=== PATIENT | female | born 1990 | race African-American/Black ===

== ENCOUNTER 2020-05-25 12:17 | Emergency (ER) | payer MEDICAID, OTHER ==
[~2020-05-25] VITALS: Ht 162.6 cm; Wt 95.3 kg
[2020-05-25] MEDS ORDERED: ONDANSETRON HCL/PF 4 MG/2 ML VIAL ONE (12:57)
[2020-05-25 13:07] LABS: BASOPHILS # (AUTO) 0.1 /CMM (0.0-0.2); BASOPHILS % (AUTO) 0.9 % (0.0-2.0); EOSINOPHILS % (AUTO) 0.6 % (0.0-6.0); HEMATOCRIT 33 % (33-45); HEMOGLOBIN 11.4 g/dL (11.5-14.8); LYMPHOCYTES # (AUTO) 1.6 /CMM (0.8-4.8); LYMPHOCYTES % (AUTO) 22.4 % (20.0-44.0); MEAN CORPUSCULAR HGB CONC 34 g/dl (31.0-36.0); MEAN CORPUSCULAR VOLUME 82 fL (82-100); MONOCYTES # (AUTO) 0.6 /CMM (0.1-1.30); MONOCYTES % (AUTO) 7.9 % (2.0-12.0); NEUTROPHILS # (AUTO) 4.9 /CMM (1.8-8.9); NEUTROPHILS % (AUTO) 68.2 % (43.0-81.0); PLATELET COUNT (AUTO) 358 /CMM (150-450); RED BLOOD CELL COUNT(AUTO) 4.09 MIL/uL (4.0-5.2); WHITE BLOOD COUNT (AUTO) 7.1 K/uL (4.3-11.0)
[2020-05-25] MEDS: IV NS 0.9% 1,000 ML BAG IV ONE (13:07)
[2020-05-25] MEDS: ONDANSETRON HCL/PF 4 MG/2 ML VIAL IVP ONE (13:08)
[2020-05-25 13:19] LABS: ALBUMIN 3.5 g/dL (3.4-5.0); BILIRUBIN,DIRECT 0.2 mg/dL (0.0-0.2); BILIRUBIN,TOTAL 0.6 mg/dL (0.2-1.0); CALCIUM, SERUM 9.4 mg/dL (8.5-10.1); CREATININE 0.7 mg/dL (0.6-1.3); TOTAL PROTEIN, SERUM 7.4 g/dL (6.4-8.2)
[2020-05-25 13:20] LABS: POTASSIUM 2.8 mmol/L (3.5-5.1)
[2020-05-25] MEDS ORDERED: LORAZEPAM INJ 2 MG/ML VIAL ONE (13:34)
[2020-05-25] MEDS: LORAZEPAM INJ 2 MG/ML VIAL IV ONE (13:43)
[2020-05-25] MEDS ORDERED: POTASSIUM CL. PREMIX PERIPHER. 50 ML ONE (13:44)
[2020-05-25] MEDS: POTASSIUM CL. PREMIX PERIPHER. 50 ML IV SCH (13:47)
--- NOTE | 2020-05-25 14:41 | NUR ---
pt states "feel better"Patient discharged to home in stable condition. Written and verbal after care instructions given. Patient verbalizes understanding of instruction.
[2020-05-25 14:42] VITALS: BP 147/91
== END 2020-05-25 14:43 | disposition home or self-care (01) ==
LOC: ER 12:22
DX: K63.9 Disease of intestine, unspecified (principal)
CPT/HCPCS: 71045; 80048; 80076; 83690; 84702; 85025; 96365; 96375; 99284; J2060; J2405; J3480; J7030; 36415